=== PATIENT | male | born 1995 | race Caucasian/White ===

== ENCOUNTER 2017-01-01 21:22 | Emergency (ER) | payer OTHER ==
[~2017-01-01] VITALS: Ht 170.2 cm; Wt 61.9 kg
[2017-01-01 21:44] VITALS: BP 129/78; PULSE 67; RESP 16; O2SAT 95
--- NOTE | 2017-01-01 22:21 | ED.REPORT ---
HPI-General Illness Date of Service Jan 01, 2017 ED Provider: Kojo Richmond MD Pt is a 21 y/o male with a history of bipolar disorder, depression, and previous suicide attempts who presents to the ED with suicidal ideations. He states that he thinks about killing himself daily. He also states that couple days ago, he tried to jump in front of a car, but his friend pulled him away, and that he has tried to drown himself in the past. Pt came to the ED today with his brother saying that he wanted "psychiatric help". He admits to doing MDMA and cocaine with his friends recently, and "things got out of hand". He feels as if he is alienating his family and wants to "feel better". Nursing Notes Stated Complaint: PSYCHIATRIC HELP Chief Complaint: Psychiatric Complaint Nursing Notes Reviewed: Yes Allergies: Coded Allergies: acetaminophen (Verified Allergy, Unknown, Rash, 01/01/17) codeine (Verified Allergy, Unknown, 01/01/17) General Time Seen by MD: 22:21 Chief Complaint Other (suicidal ideation) Hx Obtained From: Patient Arrived By: Walk-in Sudden in Onset?: No Severity: Current: No pain currently Severity: Maximum: No pain Recent Healthcare: No recent doctor visit, No recent hospitalization Similar Sx Previous: Yes Past Medical History Past Medical History Notes: Right knee in immobilizer Past Medical History Bipolar disorder at 12 Depression Previous suicide attempts Asthma, no inhaler on 01/01/17 Past Surgical History Denies Smoking History Former Smoker (recently quit as of 01/01/17) Social History Drug Use: Cocaine, Other (MDMA) Ambulatory Status Independent Review of Systems Full Review of Systems Constitutional: Denies: Fever Respiratory: Denies: Non-productive cough, Prod cough, clear, Shortness of breath Cardiovascular: Denies: Chest pain GI: Denies: Abdominal pain Male: Denies Dysuria Musculoskeletal: Denies: Back pain Neurologic: Denies: Headache Psychiatric: Reports: Suicidal ideation, Denies: Hallucinations, auditory, Hallucinations, visual, Homicidal ideation Complete sys rev & neg: except as marked. Physical Exam Vital Signs Vital Signs Date Time Temp Pulse Resp B/P Pulse Ox O2 Delivery O2 Flow Rate FiO2 01/02/17 05:51 35.9 50 12 102/56 94 Room Air 01/01/17 21:44 37.2 67 16 129/78 95 Room Air Initial VS: Reviewed Head / Eyes: Atraumatic, Normocephalic Neck: Supple, Full range of motion Abdomen / GI: Soft, Non-tender Lymphatic: No lymphadenopathy Skin: Warm, Dry, No cyanosis General/Constitutional: Awake, Alert Head / Eyes: Atraumatic, Normocephalic Respiratory / Chest: Atraumatic, Breath sounds NL, Breath sounds = bilat, No respiratory distress Cardiovascular: Heart rate NL, Regular rhythm, Heart sounds NL Interpretation & Diagnostics Lab Results Interpretation Result Diagram: 01/01/174 01/01/17 2244 Test 01/01/17 22:44 White Blood Count 9.0th/mm3 (3.8-10.1) Red Blood Count 4.87mil/mm3 (4.40-5.80) Hemoglobin 14.8g/dL (13.8-17.2) Hematocrit 40.8% (41.0-50.0) Mean Corpuscular Volume 83.8fL (81-100) Mean Corpuscular Hemoglobin 30.4pg (27.0-35.0) Mean Corpuscular Hemoglobin Concent 36.3% (32.0-37.0) Red Cell Distribution Width 13.7% (12.3-15.4) Platelet Count 224bil/L (150-400) Neutrophils (%) (Auto) 64.8% (40-74) Lymphocytes (%) (Auto) 18.7% (14-46) Monocytes (%) (Auto) 10.3% (4-12) Eosinophils (%) (Auto) 5.9% (0-5) Basophils (%) (Auto) 0.2% (0-3) Sodium Level 138mEq/L (134-144) Potassium Level 4.0mEq/L (3.5-5.2) Chloride Level 98mEq/L (97-108) Carbon Dioxide Level 25mmol/L (18-29) Blood Urea Nitrogen 13mg/dL (6-20) Creatinine 0.78mg/dL (0.76-1.27) Estimat Glomerular Filtration Rate 132mL/min (>59) Glucose Level 93mg/dL (60-99) Calcium Level 9.4mg/dL (8.5-10.1) Total Bilirubin 0.8mg/dL (0.0-1.2) Aspartate Amino Transf (AST/SGOT) 21U/L (0-50) Alanine Aminotransferase (ALT/SGPT) 10U/L (0-44) Alkaline Phosphatase 59U/L (25-150) Total Protein 7.3g/dL (6.4-8.4) Albumin 4.4g/dL (3.4-5.0) Thyroid Stimulating Hormone (TSH) 2.060uIU/mL (0.450-4.500) Hold Mirza Top Tube Received (Received) Re-Eval/Medical Decision Med Decision/Clinical Course 21-year-old with chronic depression and suicidal ideation presents voluntarily for treatment for worsening suicidal ideation. Await social service evaluation as morning. [place] not require hospitalization but that remains to be an issue. MDMA use is an issue for him, but he is not intoxicated at present. He is transferred at [address] Washburn for disposition after evaluation. Source of Hx: Old records Discharge & Departure Departure Notes 21-year-old with chronic depression and suicidal ideation presents voluntarily for treatment for worsening suicidal ideation. Await social service evaluation as morning. [place] not require hospitalization but that remains to be an issue. MDMA use is an issue for him, but he is not intoxicated at present. He is transferred at [address] Washburn for disposition after evaluation. Primary Impression: Suicidal ideation Additional Impression: Depression Depression Type: unspecified Qualified Code: F32.9 - Major depressive disorder, single episode, unspecified Discharge Condition All VS Reviewed: Yes Condition: Stable Referrals: Alexandru Denise MD Care Transferred to: Dr. Lackey Care Transferred at: 06:00 Scribe Attestation Portions of this note were transcribed by Julita Hauser. I, Dr. Richmond, personally performed the history, physical exam and medical decision-making; I reviewed and confirmed the accuracy of the information in the transcribed note. copies to: Alexandru Denise MD, Christopher W MD Jan 01, 2017 22:21 Julita Hauser Jan 01, 2017 22:27
[2017-01-01] MEDS ORDERED: Albuterol HFA 60 Puff 8 Gm Inhaler INHALATION PRN (22:30)
[2017-01-01] MEDS ORDERED: _Proair 200 Puff/8.5 GM Inhaler INHALATION PRN (22:35)
[2017-01-01] MEDS ORDERED: Albuterol HFA 200 Puff Inhaler (Vent Pts Only) INHALATION PRN (22:36)
[2017-01-01 22:46] LABS: BASOPHILS % (AUTO) 0.2 % (0-3); EOSINOPHILS % (AUTO) 5.9 % (0-5); MONOCYTES % (AUTO) 10.3 % (4-12); Mean Corpuscular Hemoglobin 30.4 pg (27.0-35.0); Mean Corpuscular Volume 83.8 fL (81-100); NEUTROPHILS % (AUTO) 64.8 % (40-74); Platelet Count 224 bil/L (150-400)
[2017-01-02 05:51] VITALS: BP 102/56; PULSE 50; RESP 12; O2SAT 94
[2017-01-02] MEDS ORDERED: OLAN5TAB4 PO (17:19)
== END 2017-01-02 18:07 ==
LOC: SED 21:22
DX: R45.851 Suicidal ideations (principal); F32.9 Major depressive disorder, single episode, unspecified; J45.909 Unspecified asthma, uncomplicated; F14.10 Cocaine abuse, uncomplicated; F12.10 Cannabis abuse, uncomplicated; Z87.891 Personal history of nicotine dependence; Z91.5 Personal history of self-harm; Z88.5 Allergy status to narcotic agent; Z88.6 Allergy status to analgesic agent